=== PATIENT | female | born 1985 | race Caucasian/White ===

== ENCOUNTER 2017-09-02 15:28 | Outpatient (CLI) | payer OTHER | END 2017-09-02 17:00 | disposition home or self-care (01) | LOC: DCC 15:28 | DX: L03.116 Cellulitis of left lower limb (principal); L03.115 Cellulitis of right lower limb; E66.01 Morbid (severe) obesity due to excess calories; L29.9 Pruritus, unspecified; F15.10 Other stimulant abuse, uncomplicated | CPT/HCPCS: Z7500 ==

== ENCOUNTER 2017-09-16 15:08 | Outpatient (CLI) | payer OTHER | END 2017-09-16 17:00 | disposition home or self-care (01) | LOC: DCC 15:08 | DX: R60.0 Localized edema (principal); E66.9 Obesity, unspecified; R06.02 Shortness of breath | CPT/HCPCS: G0463 ==

== ENCOUNTER 2018-01-24 04:23 | Emergency (ER) | payer OTHER | END 2018-01-24 06:59 | disposition home or self-care (01) | LOC: E/R 04:23 | DX: L03.115 Cellulitis of right lower limb (principal); L03.116 Cellulitis of left lower limb; R40.2142 Coma scale, eyes open, spontaneous, at arrival to emergency department; R40.2252 Coma scale, best verbal response, oriented, at arrival to emergency department; R40.2362 Coma scale, best motor response, obeys commands, at arrival to emergency department; Z87.891 Personal history of nicotine dependence | CPT/HCPCS: 93970; 99284-25 ==

== ENCOUNTER 2018-10-17 12:03 | Emergency (ER) | payer SELFPAY, OTHER | END 2018-10-17 15:15 | disposition left against medical advice (07) | LOC: E/R 12:03 | DX: Z53.21 Procedure and treatment not carried out due to patient leaving prior to being seen by health care provider (principal) ==

== ENCOUNTER 2018-12-28 01:45 | Inpatient (IN) | payer OTHER ==
[2018-12-28 03:10] LABS: ADD MAN DIFF? NO
[2018-12-28 03:12] LABS: BASOPHIL # 0.1 10^3/ul (0.0-0.1); BASOPHILS % 1.5 % (0.0-2.0); EOSINOPHILS # 0.2 10^3/ul (0.0-0.5); EOSINOPHILS % 2.9 % (0.0-7.0); HEMATOCRIT 42.4 % (37.0-47.0); HEMOGLOBIN 13.8 g/dl (12.0-16.0); LYMPHOCYTES # 1.4 10^3/ul (0.8-2.9); LYMPHOCYTES % 26.2 % (15.0-51.0); MEAN CORPUSCULAR HEMOGLOBIN 30.5 pg (29.0-33.0); MEAN CORPUSCULAR HGB CONC 32.5 g/dl (32.0-37.0); MEAN CORPUSCULAR VOLUME 93.6 fl (82.0-101.0); MEAN PLATELET VOLUME 11.3 fl (7.4-10.4); MONOCYTE # 0.5 10^3/ul (0.3-0.9); MONOCYTES % 8.9 % (0.0-11.0); NEUTROPHIL # 3.2 10^3/ul (1.6-7.5); NEUTROPHILS % 60.3 % (39.0-77.0); PLATELET COUNT 144 10^3/UL (140-415); RED BLOOD COUNT 4.53 10^6/ul (4.20-5.40); RED CELL DISTRIBUTION WIDTH 14.9 % (11.5-14.5)
[2018-12-28 03:12] LABS: WHITE BLOOD COUNT 5.3 10^3/ul (4.8-10.8)
[2018-12-28 03:21] LABS: ADD UMIC YES; UR ASCORBIC ACID NEGATIVE (NEGATIVE); UR BILIRUBIN (Dip) NEGATIVE (NEGATIVE); UR BLOOD (Dip) 1+ mg/dL (NEGATIVE); UR CLARITY CLOUDY (CLEAR); UR COLOR AMBER (YELLOW); UR GLUCOSE (Dip) NEGATIVE (NEGATIVE); UR KETONES (Dip) NEGATIVE (NEGATIVE); UR LEUKOCYTE ESTERASE (Dip) 1+ Leu/ul (NEGATIVE); UR MUCUS MODERATE /HPF (NONE SEEN); UR NITRITE (Dip) NEGATIVE (NEGATIVE); UR RBC 10 /HPF (0-5); UR SPECIFIC GRAVITY (Dip) 1.026 (1.003-1.030); UR SQUAMOUS EPITHELIAL CELL MANY /HPF (FEW); UR TOTAL PROTEIN (Dip) 2+ mg/dl (NEGATIVE); UR UROBILINOGEN (Dip) 2+ mg/dL (NEGATIVE); UR WBC 40 /HPF (0-5)
[2018-12-28 03:32] LABS: ALANINE AMINOTRANSFERASE 19 IU/L (13-69); ALBUMIN 4.4 g/dl (3.3-4.9); ALBUMIN/GLOBULIN RATIO 0.95; ALKALINE PHOSPHATASE 219 IU/L (42-121); ANION GAP 12 (5-13); ASPARTATE AMINO TRANSFERASE 39 IU/L (15-46); BILIRUBIN,INDIRECT 2.2 mg/dl (0-1.1); BILIRUBIN,TOTAL 2.2 mg/dl (0.2-1.3); BLOOD UREA NITROGEN 19 mg/dl (7-20); CALCIUM 9.8 mg/dl (8.4-10.2); CARBON DIOXIDE 24 mmol/L (21-31); CHLORIDE 107 mmol/L (97-110); CREATININE 1.05 mg/dl (0.44-1.00); Estimated GFR > 60 mL/min (>60); GLUCOSE 81 mg/dl (70-220); LIPASE 118 U/L (23-300); POTASSIUM 3.5 mmol/L (3.5-5.1); SODIUM 143 mmol/L (135-144)
[2018-12-28] MEDS ORDERED: ONDANSETRON 4 MG INJ IV ×2 (05:30→06:00)
[2018-12-28] MEDS ORDERED: PIPER-TAZO 3.375 GM IV (PMX) 100 ML IVPB (05:30)
[2018-12-28] MEDS ORDERED: ACETAMINOPHEN 325 MG TAB PO ×2 (05:30→06:00)
[2018-12-28] MEDS ORDERED: VANCOMYCIN IV PER PHARMACY XX (06:00)
[2018-12-28] MEDS ORDERED: hydrALAzine 20 MG INJ IV (06:00)
[2018-12-28] MEDS ORDERED: LORAZEPAM 2 MG INJ IV (06:00)
[2018-12-28] MEDS ORDERED: NACL 0.9% 3 ML SYG IV (06:00)
[2018-12-28] MEDS ORDERED: morphine 2 MG INJ IV (06:00)
[2018-12-28] MEDS ORDERED: NITROGLYCERIN (SL) 0.4 MG TAB SL (06:00)
[2018-12-28] MEDS ORDERED: MAGNESIUM HYDROXIDE 30ML CUP PO (06:00)
[2018-12-28] MEDS ORDERED: ALBUTEROL/IPRATROPIUM (NEB) 3 ML AMP HHN (06:00)
[2018-12-28] MEDS ORDERED: DOCUSATE SODIUM 100 MG CAP PO (06:00)
[2018-12-28] MEDS: SOD CHLORIDE 0.9% 1,000 ML IV ×2 (06:02→12:34)
[2018-12-28] MEDS: PIPER-TAZO 3.375 GM IV (PMX) 100 ML IVPB ×3 (06:02→20:40)
[2018-12-28 07:01] LABS: FREE T4 (FREE THYROXINE) 1.64 ng/dl (0.79-2.35)
[2018-12-28 07:48] LABS: B-TYPE NATRIURETIC PEPTIDE 1280 PG/ML (0-125)
[2018-12-28] MEDS: DIPHENHYDRAMINE 50 MG INJ IV (08:34)
[2018-12-28] MEDS: VANCOMYCIN HCL 2 GM in SOD CHLORIDE 0.9% 500 ML IVPB (08:44)
[2018-12-28] MEDS: NICOTINE (21 MG/24 HR) PATCH TRANSDERM (09:00)
[2018-12-28] MEDS: FUROSEMIDE 20 MG INJ IV ×2 (09:01→18:28)
[2018-12-28] MEDS: HEPARIN 5,000 UNIT/1 ML VIAL SC ×2 (10:57→20:45)
[2018-12-28] MEDS ORDERED: VANCOMYCIN 1 GM in 250 ML IVPB (11:00)
[2018-12-28 16:26] LABS: ADD UMIC YES; UR ASCORBIC ACID NEGATIVE (NEGATIVE); UR BILIRUBIN (Dip) NEGATIVE (NEGATIVE); UR BLOOD (Dip) 1+ mg/dL (NEGATIVE); UR CLARITY CLEAR (CLEAR); UR COLOR YELLOW (YELLOW); UR GLUCOSE (Dip) NEGATIVE (NEGATIVE); UR KETONES (Dip) NEGATIVE (NEGATIVE); UR LEUKOCYTE ESTERASE (Dip) NEGATIVE Leu/ul (NEGATIVE); UR NITRITE (Dip) NEGATIVE (NEGATIVE); UR RBC 3 /HPF (0-5); UR SPECIFIC GRAVITY (Dip) 1.017 (1.003-1.030); UR TOTAL PROTEIN (Dip) NEGATIVE (NEGATIVE); UR UROBILINOGEN (Dip) 2+ mg/dL (NEGATIVE); UR WBC 2 /HPF (0-5)
[2018-12-28 16:58] LABS: BARBITURATES Negative (NEGATIVE); BENZODIAZEPINES Negative (NEGATIVE); CANNABINOIDS Negative (NEGATIVE); COCAINE Negative (NEGATIVE); OPIATES Negative (NEGATIVE)
[2018-12-28 17:11] LABS: AMPHETAMINE/METHAMPHETAMINE POSITIVE (NEGATIVE)
[2018-12-28] MEDS: VANCOMYCIN 1 GM 250 ML IVPB (17:13)
[2018-12-28] MEDS: HYDROCODONE/APAP (5/325) TAB PO (21:59)
[2018-12-29] MEDS: VANCOMYCIN 1 GM 250 ML IVPB (00:46)
[2018-12-29] MEDS: SOD CHLORIDE 0.9% 1,000 ML IV ×2 (01:39→06:46)
[2018-12-29] MEDS: PIPER-TAZO 3.375 GM IV (PMX) 100 ML IVPB ×2 (03:25→09:15)
[2018-12-29 05:16] LABS: ADD MAN DIFF? NO
[2018-12-29 05:30] LABS: HEMOGLOBIN A1C 5.4 % (0-5.9)
[2018-12-29 05:31] LABS: WHITE BLOOD COUNT 5.2 10^3/ul (4.8-10.8)
[2018-12-29 05:31] LABS: BASOPHIL # 0.1 10^3/ul (0.0-0.1); BASOPHILS % 1.5 % (0.0-2.0); EOSINOPHILS # 0.2 10^3/ul (0.0-0.5); EOSINOPHILS % 3.8 % (0.0-7.0); HEMATOCRIT 40.9 % (37.0-47.0); HEMOGLOBIN 13.3 g/dl (12.0-16.0); LYMPHOCYTES # 1.4 10^3/ul (0.8-2.9); LYMPHOCYTES % 27.2 % (15.0-51.0); MEAN CORPUSCULAR HGB CONC 32.5 g/dl (32.0-37.0); MEAN CORPUSCULAR VOLUME 92.1 fl (82.0-101.0); MEAN PLATELET VOLUME 11.5 fl (7.4-10.4); MONOCYTE # 0.5 10^3/ul (0.3-0.9); NEUTROPHILS % 58.3 % (39.0-77.0); PLATELET COUNT 144 10^3/UL (140-415); RED BLOOD COUNT 4.44 10^6/ul (4.20-5.40)
[2018-12-29 05:36] LABS: CHOLESTEROL 114 mg/dl (100-200)
[2018-12-29 05:36] LABS: HDL CHOLESTEROL 57 mg/dl (34-82); LDL CHOLESTEROL,CALCULATED 50 mg/dl; TRIGLYCERIDES 34 mg/dl (0-149)
[2018-12-29 05:41] LABS: ANION GAP 9 (5-13); BLOOD UREA NITROGEN 20 mg/dl (7-20); CALCIUM 9.2 mg/dl (8.4-10.2); CARBON DIOXIDE 23 mmol/L (21-31); CHLORIDE 109 mmol/L (97-110); CREATININE 1.08 mg/dl (0.44-1.00); Estimated GFR 59 mL/min (>60); GLUCOSE 86 mg/dl (70-220); MAGNESIUM 1.5 mg/dl (1.7-2.5); PHOSPHORUS 5.3 mg/dl (2.5-4.9); POTASSIUM 3.6 mmol/L (3.5-5.1); SODIUM 141 mmol/L (135-144)
[2018-12-29] MEDS: FUROSEMIDE 20 MG INJ IV (05:53)
[2018-12-29] MEDS: NICOTINE (21 MG/24 HR) PATCH TRANSDERM (09:00)
[2018-12-29] MEDS: HEPARIN 5,000 UNIT/1 ML VIAL SC ×2 (09:16→21:51)
[2018-12-29 09:37] LABS: VANCOMYCIN,TROUGH 23.5 ug/ml (10.0-20.0)
[2018-12-29] MEDS: MAGNESIUM SULFATE 2 GM/50 ML 50 ML IVPB (10:31)
[2018-12-29] MEDS ORDERED: VANCOMYCIN 1 GM 250 ML IVPB (18:00)
[2018-12-29] MEDS: CLINDAMYCIN 600 MG/D5W (PMX) 50 ML IVPB (21:50)
[2018-12-29] MEDS: HYDROCODONE/APAP (5/325) TAB PO (21:54)
[2018-12-30] MEDS: DIPHENHYDRAMINE 25 MG CAP PO ×2 (01:11→11:22)
[2018-12-30 05:41] LABS: ADD MAN DIFF? NO
[2018-12-30 05:46] LABS: WHITE BLOOD COUNT 5.1 10^3/ul (4.8-10.8)
[2018-12-30 05:46] LABS: BASOPHIL # 0.1 10^3/ul (0.0-0.1); BASOPHILS % 1.2 % (0.0-2.0); EOSINOPHILS # 0.2 10^3/ul (0.0-0.5); EOSINOPHILS % 3.9 % (0.0-7.0); HEMATOCRIT 39.1 % (37.0-47.0); HEMOGLOBIN 12.9 g/dl (12.0-16.0); LYMPHOCYTES # 1.4 10^3/ul (0.8-2.9); LYMPHOCYTES % 27.3 % (15.0-51.0); MEAN CORPUSCULAR HEMOGLOBIN 30.6 pg (29.0-33.0); MEAN CORPUSCULAR VOLUME 92.9 fl (82.0-101.0); MONOCYTE # 0.5 10^3/ul (0.3-0.9); NEUTROPHIL # 2.9 10^3/ul (1.6-7.5); NEUTROPHILS % 57.4 % (39.0-77.0); PLATELET COUNT 129 10^3/UL (140-415); RED BLOOD COUNT 4.21 10^6/ul (4.20-5.40); RED CELL DISTRIBUTION WIDTH 14.9 % (11.5-14.5)
[2018-12-30] MEDS: CLINDAMYCIN 600 MG/D5W (PMX) 50 ML IVPB ×2 (06:00→13:50)
[2018-12-30 06:07] LABS: ANION GAP 10 (5-13); BLOOD UREA NITROGEN 17 mg/dl (7-20); CALCIUM 9.3 mg/dl (8.4-10.2); CARBON DIOXIDE 24 mmol/L (21-31); CHLORIDE 108 mmol/L (97-110); CREATININE 0.92 mg/dl (0.44-1.00); Estimated GFR > 60 mL/min (>60); GLUCOSE 113 mg/dl (70-220); POTASSIUM 3.3 mmol/L (3.5-5.1); SODIUM 142 mmol/L (135-144)
[2018-12-30] MEDS: NICOTINE (21 MG/24 HR) PATCH TRANSDERM (09:00)
[2018-12-30] MEDS: HEPARIN 5,000 UNIT/1 ML VIAL SC (11:23)
== END 2018-12-30 16:00 | disposition home or self-care (01) | DRG 603 ==
LOC: E/R 01:45 → MS1 05:10
PROVIDERS: Hospitalist
DX: L03.116 Cellulitis of left lower limb (principal); N39.0 Urinary tract infection, site not specified; Z68.41 Body mass index [BMI] 40.0-44.9, adult; L03.115 Cellulitis of right lower limb; E66.01 Morbid (severe) obesity due to excess calories; I11.0 Hypertensive heart disease with heart failure; I50.814 Right heart failure due to left heart failure; Z59.0 Homelessness; Z72.0 Tobacco use
CPT/HCPCS: 36415; 71045; 76705; 80048; 80053; 80061; 80202; 80307; 81001; 83036; 83690; 83735; 83880; 84100; 84439; 84443; 84703; 85025; 87040-91; 87086; 93306; 93970; 97161; 99285-25

== ENCOUNTER 2019-01-16 19:49 | Emergency (ER) | payer OTHER ==
[2019-01-16] MEDS: DEXAMETHASONE 10 MG/ML 1 ML INJ IM (21:25)
[2019-01-16] MEDS: FAMOTIDINE 20 MG TAB PO (21:25)
== END 2019-01-16 22:00 | disposition home or self-care (01) ==
LOC: FTE 19:49
DX: R21 Rash and other nonspecific skin eruption (principal); I50.9 Heart failure, unspecified; F17.210 Nicotine dependence, cigarettes, uncomplicated
CPT/HCPCS: 99283; J1100